=== PATIENT | female | born 1935 | race Caucasian/White ===

== ENCOUNTER 2022-02-09 14:52 | Emergency (ER) | payer OTHER, BC ==
[2022-02-09 15:01] VITALS: BP 153/82; PULSE 86; TEMP 98.3; BMI 31.2
[2022-02-09] MEDS ORDERED: ACETAMINOPHEN 500 MG TABLET (FP) PO ONE (15:42)
[2022-02-09] MEDS ORDERED: ACETAMINOPHEN 500 MG TABLET (FP) ONE (15:50)
[2022-02-09] MEDS ORDERED: oxyCODONE HCL 5 MG TABLET ONE (15:52)
[2022-02-09] MEDS ORDERED: oxyCODONE HCL 5 MG TABLET PO ONE (15:53)
== END 2022-02-09 17:57 | disposition home or self-care (01) ==
LOC: FER 14:52
DX: M66.822 Spontaneous rupture of other tendons, left upper arm (principal)
CPT/HCPCS: 73030-TC-LT-FY; 73060-TC-LT-FY; 99283-25

== ENCOUNTER 2022-02-11 13:38 | Emergency (ER) | payer OTHER, BC ==
[2022-02-11 13:47] VITALS: BP 173/77; PULSE 80; TEMP 98.2; BMI 32.0
== END 2022-02-11 15:01 | disposition home or self-care (01) ==
LOC: FER 13:38
DX: M66.822 Spontaneous rupture of other tendons, left upper arm (principal)
CPT/HCPCS: 71101-TC-LT-FY; 99283-25